=== PATIENT | female | born 1990 | race Caucasian/White ===

== ENCOUNTER 2022-07-30 07:02 | Emergency (ER) | payer MEDICAID, OTHER ==
[~2022-07-30] VITALS: Ht 157.5 cm; Wt 68.0 kg
[2022-07-30 07:09] VITALS: O2SAT 96
[2022-07-30 07:42] LABS: BASOPHILS % 0.2 % (0.0-2.0); EOSINOPHILS % 0.8 % (0.0-5.0); HEMOGLOBIN. 14.4 g/dL (12.0-16.0); LYMPHOCYTES % 15.5 % (20.0-50.0); MEAN CORPUSCULAR HEMOGLOBIN 30.8 pg (28.0-32.0); MEAN PLATELET VOLUME 8.1 fl (7.4-10.4); MONOCYTES % 5.3 % (2.0-8.0); NEUTROPHILS % 78.2 % (40.0-76.0); PLATELET 347 x1000/uL (130-400); RED BLOOD CELL COUNT 4.66 mill/uL (4.2-5.4); RED CELL DISTRIBUTION WIDTH 13.6 % (11.6-14.6)
[2022-07-30 07:47] LABS: CHLORIDE 106 mEq/L (98-107)
[2022-07-30 08:05] LABS: CLARITY URINE TURBID (CLEAR); COLOR URINE YELLOW (YELLOW); KETONES URINE NEGATIVE (NEGATIVE); LEUKOCYTE ESTERASE URINE 3+ (NEGATIVE); NITRITE URINE POSITIVE (NEGATIVE); OCCULT BLOOD URINE 3+ (NEGATIVE); PROTEIN URINE 2+ (NEGATIVE); SPECIFIC GRAVITY URINE 1.019 (1.005-1.030); UROBILINOGEN URINE 0.2 E.U./dL (0.2-1.0)
[2022-07-30] MEDS ORDERED: NITR100C PO (08:12)
[2022-07-30] MEDS ORDERED: TOPUD PO (08:12)
[2022-07-30 08:31] VITALS: BP 121/79; PULSE 81; RESP 16; TEMP 98.2
== END 2022-07-30 08:32 | disposition home or self-care (01) ==
LOC: ER 07:02
DX: N39.0 Urinary tract infection, site not specified (principal)
CPT/HCPCS: 36415; 80053; 81003; 81025; 85025; 87186; 99283